=== PATIENT | female | born 1955 | race Two or more races ===

== ENCOUNTER 2021-10-29 20:08 | Emergency (ER) | payer SELFPAY ==
[~2021-10-29] VITALS: Ht 162.6 cm; Wt 80.1 kg
[2021-10-29 20:09] VITALS: BP 154/84
[2021-10-29] MEDS ORDERED: LOVA40TA PO (20:32)
[2021-10-29] MEDS ORDERED: SERT-141 PO (20:32)
[2021-10-29] MEDS ORDERED: ATEN50TA2 PO (20:32)
== END 2021-10-29 23:25 | disposition left against medical advice (07) ==
LOC: M ED 20:08
DX: Z53.21 Procedure and treatment not carried out due to patient leaving prior to being seen by health care provider (principal)

== ENCOUNTER → 2021-10-29 | Outpatient (REF) ==
[~2021-10-29] MED LIST: ATEN50TA2 PO; LOVA40TA PO; SERT-141 PO
== END ==
LOC: M LABSMTC 10:13
PROVIDERS: ATTEND Family Medicine
DX: Z20.822 Contact with and (suspected) exposure to COVID-19 (principal); Z11.52 Encounter for screening for COVID-19